=== PATIENT | female | born 1965 | race Caucasian/White ===

== ENCOUNTER → 2020-08-15 | Outpatient (CLI) | payer BC, OTHER ==
[~2020-08-15] MED LIST: ATORVASTATIN CA10 MG PO; EUTHYROX50 MCG PO; LISINOPRIL5 MG PO; PAROXETINE HCL40 MG PO; VITAMIN D3-CAL1 EACH PO; VITAMIN D31250 MCG PO
== END ==
LOC: KOH-I 08-08 09:30 → EXRD 08-09 10:00 → KOH-I 08:00
DX: R74.8 Abnormal levels of other serum enzymes (principal)
CPT/HCPCS: 76705

== ENCOUNTER → 2020-11-29 | Outpatient (CLI) | payer BC, OTHER ==
[2020-11-29 08:58] LABS: HEMOGLOBIN 12.8 gm/dl (12.3-15.3); RED BLOOD COUNT 4.53 M/UL (4.00-5.10); WHITE BLOOD COUNT 7.6 K/UL (4.5-11.0)
== END ==
LOC: CT 07:56
PROVIDERS: Internal Medicine Gastroenterology
DX: K73.1 Chronic lobular hepatitis, not elsewhere classified (principal); Z79.899 Other long term (current) drug therapy
CPT/HCPCS: 36415; 77012; 85027; 85610; 85730

== ENCOUNTER → 2020-12-01 | Outpatient (CLI) | payer BC, OTHER | LOC: EXRD 10:10 | DX: M54.5 Low back pain (principal); M54.6 Pain in thoracic spine; M47.896 Other spondylosis, lumbar region | CPT/HCPCS: 72070; 72100 ==

== ENCOUNTER 2021-01-18 15:33 | Emergency (ER) | payer OTHER | END 2021-01-18 19:00 | disposition home or self-care (01) | LOC: ER1 15:33 | DX: M25.511 Pain in right shoulder (principal); M54.5 Low back pain; Z88.6 Allergy status to analgesic agent; Z79.899 Other long term (current) drug therapy; V49.50XA Passenger injured in collision with unspecified motor vehicles in traffic accident, initial encounter; Y92.410 Unspecified street and highway as the place of occurrence of the external cause | CPT/HCPCS: 73030; 99283 ==

== ENCOUNTER → 2021-05-31 | Outpatient (CLI) | payer BC | LOC: MRI 09:18 | DX: M51.16 Intervertebral disc disorders with radiculopathy, lumbar region (principal); M48.061 Spinal stenosis, lumbar region without neurogenic claudication | CPT/HCPCS: 72148 ==

== ENCOUNTER → 2021-12-28 | Outpatient (CLI) | payer BC | LOC: KOH-I 13:34 | DX: M25.562 Pain in left knee (principal) | CPT/HCPCS: 73562 ==